=== PATIENT | male | born 2000 | race Caucasian/White ===

== ENCOUNTER → 2020-11-06 | Day surgery (SDC) | payer OTHER ==
[~2020-11-06] MED LIST: ALBUTEROL INH INH; CEPHALEXIN500 M1 PO; CLINDAMYCIN HC150 MG PO; FLONASE ALLER15.8 ML; HYDROCODON-ACE1 EAC4 PO; IBU800 MG PO; IBUPROFEN600 MG PO; OMEPRAZOLE20 M1 PO; OMEPRAZOLE40 MG PO; PROTONIX40 MG PO
== END | disposition home or self-care (01) ==
LOC: OR 10-23 14:30
DX: N39.41 Urge incontinence (principal); R35.0 Frequency of micturition; J40 Bronchitis, not specified as acute or chronic; J31.0 Chronic rhinitis; Z79.899 Other long term (current) drug therapy
CPT/HCPCS: J7040

== ENCOUNTER → 2021-01-08 | Day surgery (SDC) | payer OTHER | END | disposition home or self-care (01) | LOC: OR 11:28 | DX: R35.0 Frequency of micturition (principal); R39.15 Urgency of urination; R31.29 Other microscopic hematuria; J45.909 Unspecified asthma, uncomplicated; K21.9 Gastro-esophageal reflux disease without esophagitis; Z79.1 Long term (current) use of non-steroidal anti-inflammatories (NSAID); Z79.899 Other long term (current) drug therapy | CPT/HCPCS: C1769; J0585; J1100; J1956; J2001; J2250; J2405; J2704; J3010; J7030; J7120 ==

== ENCOUNTER 2021-01-22 23:55 | Emergency (ER) | payer OTHER ==
[~2021-01-22 23:55] MED LIST changes: -CEPHALEXIN500 M1 PO; -CLINDAMYCIN HC150 MG PO; -HYDROCODON-ACE1 EAC4 PO
[2021-01-23] MEDS ORDERED: CEPHALEXIN500 M1 PO (03:52)
== END 2021-01-23 04:10 | disposition home or self-care (01) ==
LOC: ER1 23:55
DX: L03.011 Cellulitis of right finger (principal)
CPT/HCPCS: 99283

== ENCOUNTER 2021-01-26 18:20 | Emergency (ER) | payer OTHER ==
[~2021-01-26 18:20] MED LIST changes: +CEPHALEXIN500 M1 PO
[2021-01-26 19:37] LABS: HEMOGLOBIN 14.9 gm/dl (14.0-17.5); RED BLOOD COUNT 4.9 M/UL (4.20-5.50); WHITE BLOOD COUNT 9.8 K/UL (4.5-11.0)
[2021-01-26 20:16] LABS: BUN/CREATININE RATIO 14 (0-10)
[2021-01-26] MEDS ORDERED: CLINDAMYCIN HC150 MG PO (20:51)
[2021-01-26] MEDS ORDERED: HYDROCODON-ACE1 EAC4 PO (21:15)
== END 2021-01-26 21:26 | disposition home or self-care (01) ==
LOC: ER1 18:20
PROVIDERS: Nurse Practitioner
DX: L03.011 Cellulitis of right finger (principal)
CPT/HCPCS: 73130; 80053; 83605; 85025; 85652; 86140; 87040; 99283